=== PATIENT | female | born 1960 | race Caucasian/White ===

== ENCOUNTER 2017-05-06 21:45 | Emergency (ER) | payer OTHER ==
[~2017-05-06] VITALS: Ht 149.9 cm; Wt 82.0 kg
[~2017-05-06 21:45] MED LIST: CIPR500T2 PO; PYRI200T4 PO; ZOFR4TAB3 SL
[2017-05-06 21:50] VITALS: BP 120/81; PULSE 85; RESP 16; TEMP 98.2; O2SAT 97
--- NOTE | 2017-05-06 22:28 | PD ---
HPI Chief Complaint: ENT Complaint Time Seen by Provider: 22:18 Travel History International Travel<30 days: No Contact w/Intl Traveler<30days: No Traveled to known affect area: No History of Present Illness HPI 56 year-old female presents to the emergency room for dental pain and possible allergic reaction. Patient has been experiencing dental pain for the past several weeks. She has been on Augmentin and now clindamycin prescribed by her dentist for this without significant relief in symptoms. They took x-rays and told her that she had root issues. States she has called her dentist back multiple times and tried several other dentists in the area but the earliest she could be seen is May 29. The other dentist won't see her because she is "under the care of another physician." When she called back again tonia and they told her "if it's that bad, go to the emergency room." Patient has been taking her clindamycin, 600 mg ibuprofen, and 650 mg Tylenol as prescribed. She also tried topical medications. The Tylenol is the only thing that seems to help. Patient denies fever, chills, nausea, and vomiting. She was prescribed Lortab but states she cannot take it because it makes her stomach hurt. She is concerned that she has developed an allergic reaction to the clindamycin because for the past 5 days she has had a scratchy throat and itchy skin. PFSH Past Medical History Arthritis: No Asthma: No Autoimmune Disease: No Blood Disorders: No Bipolar Disorder: Yes Anxiety: Yes Depression: Yes Cancer: No Cardiovascular Problems: No High Cholesterol: Yes Chest Pain: Yes COPD: No Cerebrovascular Accident: No Diabetes: No Diminished Hearing: Yes (DIMINISHED HEARING IN RT EAR.) Endocrine: No Fibromyalgia: Yes Gastrointestinal Disorders: Yes (CELIAC DISEASE, GASTROPARESIS) Genitourinary: No Headaches: Yes Musculoskeletal: Yes (FIBROMYALGIA) Neurologic: Yes Psychiatric: Yes Reproductive: No Respiratory: No Immunizations Current: Yes Migraines: Yes Seizures: Yes Sleep Apnea: No Thyroid Disease: No PNEUMOCCOCAL Vaccine (Year): 2008 ?: Not Menopausal: Yes : 6 Para: 3 Miscarriage: 3 Ovarian Cysts: Yes (RIGHT GROIN) Past Surgical History Abdominal Surgery: Yes (CYST REMOVED FROM GROIN) Appendectomy: Yes Body Medical Devices: FIBROMYALGIA. Section: Yes (X2) Cholecystectomy: Yes Genitourinary Surgery: Yes (CYST REMOVED RIGHT GROIN) Gynecologic Surgery: Yes (HYSTERECTOMY 2004 ,CSECTION) Hysterectomy: Yes (PARTIAL) Neurologic Surgery: No Other Surgery: Yes (CYST REMOVED FROM RIGHT HIP AREA) Social History Alcohol Use: No Tobacco Use: No Substance Use: No Allergies-Medications (Allergen,Severity, Reaction): Coded Allergies: Augmentin (Verified Allergy, Severe, Hives, 09/24/16) Gluten (Verified Allergy, Severe, SWELLING, 09/24/16) Erythromycin (Verified Adverse Reaction, Severe, VOMITING, 09/24/16) Reported Meds & Prescriptions Reported Meds & Active Scripts Active Pyridium (Phenazopyridine HCl) 200 Mg Tab 200 Mg PO Q8H PRN 3 Days Zofran Odt (Ondansetron Odt) 4 Mg Tab 4 Mg SL Q6HR PRN Ciprofloxacin (Ciprofloxacin HCl) 500 Mg Tab 500 Mg PO BID 7 Days Review of Systems Except as stated in HPI: all other systems reviewed are Neg Physical Exam Narrative GENERAL: Well-nourished, well-developed female in no acute distress. Afebrile. Ambulatory. SKIN: Focused skin assessment warm/dry. No rash. HEAD: Normocephalic. EYES: No scleral icterus. No injection or drainage. DENTAL: No loose or chipped teeth. No malocclusion. Tooth #3 is extremely tender to palpation. No surrounding erythema, edema, or induration. No drainage. No submental, sublingual her, or buccal edema or induration. ENT: Mucosa pink and moist. Mild erythema without edema or exudates. No uvular edema. No uvular, palatal, or tonsillar deviation. Airway patent. Tonsils 1+ and equal bilaterally. NECK: Supple, trachea midline. No JVD or lymphadenopathy. CARDIOVASCULAR: Regular rate and rhythm without murmurs, gallops, or rubs. RESPIRATORY: Breath sounds equal bilaterally. No accessory muscle use. Data Data Last Documented VS Vital Signs Date Time Temp Pulse Resp B/P Pulse Ox O2 Delivery O2 Flow Rate FiO2 05/06/17 21:50 98.2 85 16 120/81 97 MDM Medical Decision Making Medical Screen Exam Complete: Yes Emergency Medical Condition: No Medical Record Reviewed: Yes Differential Diagnosis Dental abscess Narrative Course 56-year-old female on clindamycin prescribed by a dentist for dental abscess presents to the emergency room for evaluation of dental pain for the past several weeks. States it doesn't seem to be improving with the medications. Physical exam is unremarkable. No evidence of acute infection at this time. Patient was informed that there is nothing the emergency room can do except help treat the pain but that ultimately her tooth will need to be evaluated and possibly removed by a dentist. There is no evidence of allergic reaction to her medications: Vital signs are stable, there is no rash, airway is patent, lung sounds are clear and equal bilaterally. A medical screening exam was performed: At the time of evaluation the presenting medical condition was determined not to be of an emergent nature. The patient was given the option of receiving additional care, such as prescription for Zofran, but declined. Patient was given options for additional community resources from which to obtain care. The Patient Has Been advised to seek medical attention for their presenting complaint. The patient has been advised to return to the ER at any time if an emergent condition develops. Diagnosis Primary Impression: Encounter for medical screening examination Disposition: 01 DISCHARGE HOME Condition: Stable Rossana Buchanan May 06, 2017 22:28
== END 2017-05-06 22:19 | disposition left against medical advice (07) ==
LOC: PHEFT 21:45
DX: K08.89 Other specified disorders of teeth and supporting structures (principal)
CPT/HCPCS: 99281

== ENCOUNTER 2017-09-24 15:48 | Emergency (ER) | payer OTHER ==
[~2017-09-24] VITALS: Ht 149.9 cm; Wt 81.4 kg
[2017-09-24 16:12] VITALS: BP 127/69; PULSE 77; RESP 16; TEMP 97.9; O2SAT 98
[2017-09-24 16:25] LABS: GLUCOSE,URINE NEG (NEG); KETONE, URINE NEG (NEG); NITRITE,URINE NEG (NEG)
[2017-09-24 16:33] LABS: BLOOD, URINE TRACE (NEG)
[2017-09-24 16:37] LABS: METHOD OF COLLECTION CLEAN CATCH; URINE COLOR YELLOW (YELLW/STRAW)
[2017-09-24 16:38] LABS: COMMENT (UR) CULT NOT INDICATED; CULTURE IF INDICATED CULT NOT INDICATED; SQUAMOUS EPITHELIAL CELL URINE 0-5 /hpf (0-5); WBC, URINE 0-2 /hpf (0-5)
--- NOTE | 2017-09-24 17:58 | PD ---
HPI Chief Complaint: Flank/Kidney Pain Time Seen by Provider: 17:46 Travel History International Travel<30 days: No Contact w/Intl Traveler<30days: No Traveled to known affect area: No History of Present Illness HPI 56yo F with PMH of fibromyalgia, gastroparesis presents to the ED with c/o right sided back pain that radiates to right groin for 1 day. Associated with nausea. Had kidney stone years ago. Denies any fever, chest pain, sob, vomiting, dysuria, vaginal bleeding or discharge. Had hematuria a week ago. Denies any trauma, IVDA, focal weakness or numbness. PFSH Past Medical History Arthritis: No Asthma: No Autoimmune Disease: No Blood Disorders: No Bipolar Disorder: Yes Anxiety: Yes Depression: Yes Cancer: No Cardiovascular Problems: No High Cholesterol: Yes Chest Pain: Yes COPD: No Cerebrovascular Accident: No Diabetes: No Diminished Hearing: Yes (DIMINISHED HEARING IN RT EAR.) Endocrine: No Fibromyalgia: Yes Gastrointestinal Disorders: Yes (CELIAC DISEASE, GASTROPARESIS) Genitourinary: No Headaches: Yes Musculoskeletal: Yes (FIBROMYALGIA) Neurologic: Yes Psychiatric: Yes Reproductive: No Respiratory: No Immunizations Current: Yes Migraines: Yes Seizures: Yes Sleep Apnea: No Thyroid Disease: No PNEUMOCCOCAL Vaccine (Year): 2008 ?: Not Menopausal: Yes : 6 Para: 3 Miscarriage: 3 Ovarian Cysts: Yes (RIGHT GROIN) Past Surgical History Abdominal Surgery: Yes (CYST REMOVED FROM GROIN) Appendectomy: Yes Body Medical Devices: FIBROMYALGIA. Cardiac Surgery: No Section: Yes (X2) Cholecystectomy: Yes Ear Surgery: No Endocrine Surgery: No Eye Surgery: No Genitourinary Surgery: Yes (CYST REMOVED RIGHT GROIN) Gynecologic Surgery: Yes (HYSTERECTOMY 2004 ,CSECTION) Hysterectomy: Yes (PARTIAL) Insulin Pump: No Neurologic Surgery: No Oral Surgery: No Thoracic Surgery: No Other Surgery: Yes (CYST REMOVED FROM RIGHT HIP AREA) Social History Alcohol Use: No Tobacco Use: No Substance Use: No Allergies-Medications (Allergen,Severity, Reaction): Coded Allergies: amoxicillin (Unverified Allergy, Severe, Hives, 09/24/17) clavulanic acid (Unverified Allergy, Severe, Hives, 09/24/17) gluten (Unverified Allergy, Severe, SWELLING, 09/24/17) erythromycin base (Unverified Adverse Reaction, Severe, VOMITING, 09/24/17) Reported Meds & Prescriptions Reported Meds & Active Scripts Active Reported D3 Super Strength (Cholecalciferol) 2,000 Unit Cap 2,000 Units PO DAILY Probiotic (Lactobacillus Acidophilus) 10 Billion Cell Cap 1 Cap PO TIDAC Fish Oil ([place]-3 Fatty Acids) 340 Mg-1,000 Mg Cap Review of Systems Except as stated in HPI: all other systems reviewed are Neg Physical Exam Narrative GENERAL: 56yo F in mild distress. SKIN: Focused skin assessment warm/dry. HEAD: Atraumatic. Normocephalic. EYES: Pupils equal and round. No scleral icterus. No injection or drainage. CARDIOVASCULAR: Regular rate and rhythm. No murmur appreciated. RESPIRATORY: No accessory muscle use. Clear to auscultation. Breath sounds equal bilaterally. GASTROINTESTINAL: Abdomen soft, +TTP right flank. Mild epigastric ttp, said she always has this. No rebound tenderness or guarding. BACK: No midline thoracic or lumbar ttp. +CVA tenderness right. MUSCULOSKELETAL: No obvious deformities. No clubbing. No cyanosis. No edema. NEUROLOGICAL: Awake and alert. No obvious cranial nerve deficits. Motor grossly within normal limits. Normal speech. PSYCHIATRIC: Appropriate mood and affect; insight and judgment normal. Data Data Last Documented VS Vital Signs Date Time Temp Pulse Resp B/P (MAP) Pulse Ox O2 Delivery O2 Flow Rate FiO2 09/24/17 16:12 97.9 77 16 127/69 (88) 98 Orders Orders Urinalysis - C+S If Indicated (09/24/17 16:17) Ct Abd/Pel W/O Iv Contrast (09/24/17 16:28) Complete Blood Count With Diff (09/24/17 17:53) Comprehensive Metabolic Panel (09/24/17 17:53) Lipase (09/24/17 17:53) Ondansetron Inj (Zofran Inj) (09/24/17 18:00) Ketorolac Inj (Toradol Inj) (09/24/17 18:00) Labs Laboratory Tests Test 09/24/17 16:20 09/24/17 18:28 Urine Collection Type CLEAN CATCH Urine Color YELLOW Urine Turbidity CLEAR Urine pH 6.0 Urine Specific [place] 1.014 Urine Protein NEG mg/dL Urine Glucose (UA) NEG mg/dL Urine Ketones NEG mg/dL Urine Occult Blood TRACE Urine Nitrite NEG Urine Bilirubin NEG Urine Leukocyte Esterase SMALL Urine WBC 0-2 /hpf Urine Squamous Epithelial Cells 0-5 /hpf Microscopic Urinalysis Comment CULT NOT INDICATED White Blood Count 6.0 TH/MM3 Red Blood Count 4.82 MIL/MM3 Hemoglobin 14.0 GM/DL Hematocrit 41.4 % Mean Corpuscular Volume 85.9 FL Mean Corpuscular Hemoglobin 29.0 PG Mean Corpuscular Hemoglobin Concent 33.7 % Red Cell Distribution Width 12.5 % Platelet Count 313 TH/MM3 Mean Platelet Volume 6.6 FL Neutrophils (%) (Auto) 55.8 % Lymphocytes (%) (Auto) 36.0 % Monocytes (%) (Auto) 4.4 % Eosinophils (%) (Auto) 2.9 % Basophils (%) (Auto) 0.9 % Neutrophils # (Auto) 3.2 TH/MM3 Lymphocytes # (Auto) 2.2 TH/MM3 Monocytes # (Auto) 0.3 TH/MM3 Eosinophils # (Auto) 0.2 TH/MM3 Basophils # (Auto) 0.1 TH/MM3 CBC Comment DIFF FINAL Differential Comment Blood Urea Nitrogen 10 MG/DL Creatinine 0.75 MG/DL Random Glucose 87 MG/DL Total Protein 7.7 GM/DL Albumin 3.9 GM/DL Calcium Level 9.2 MG/DL Alkaline Phosphatase 73 U/L Aspartate Amino Transf (AST/SGOT) 15 U/L Alanine Aminotransferase (ALT/SGPT) 32 U/L Total Bilirubin 0.4 MG/DL Sodium Level 136 MEQ/L Potassium Level 3.6 MEQ/L Chloride Level 102 MEQ/L Carbon Dioxide Level 28.4 MEQ/L Anion Gap 6 MEQ/L Estimat Glomerular Filtration Rate 80 ML/MIN Lipase 135 U/L [facility] Medical Decision Making Medical Screen Exam Complete: Yes Emergency Medical Condition: Yes Differential Diagnosis Nephrolithiasis vs. pyelonephritis vs. musculoskeletal pain Narrative Course 56yo F with right back pain that may be kidney stone or musculoskeletal pain. No red flags. Labs reviewed, no leukocytosis. Creatinine normal. UA showed trace blood. WBC 0-2. CT abd/pelvis showed no obstructive uropathy. Pt given toradol and zofran with improvement of pain and nausea. Return precautions given. Diagnosis Primary Impression: Back pain Qualified Codes: M54.5 - Low back pain Patient Instructions: General Instructions Departure Forms: Tests/Procedures Additional Instructions: Please follow up with your primary care physician in 3-7 days. Return to the ED if symptoms worsen. Med/Other Pt SpecificInfo: Prescription(s) given Scripts Ibuprofen (Ibuprofen) 600 Mg Tab 600 MG PO Q8H Y for PAIN, #15 TAB 0 Refills Prov: Ning Solano DO 09/24/17 Disposition: 01 DISCHARGE HOME Condition: Stable Ning Solano DO Sep 24, 2017 17:58
[2017-09-24] MEDS ORDERED: KETOROLAC TROMETHAMINE 30 MG/ML (IVP) VIAL IV PUSH ONE (18:00)
[2017-09-24] MEDS ORDERED: ONDANSETRON HCL 4 MG/2 ML VIAL IV PUSH ONE (18:00)
[2017-09-24] MEDS ORDERED: LACTCAP8 PO (18:01)
[2017-09-24] MEDS ORDERED: FISH1000 (18:01)
[2017-09-24] MEDS ORDERED: D200CAP PO (18:01)
--- NOTE | 2017-09-24 18:12 | RADRPT ---
EXAM DATE/TIME: 09/24/2017 17:07 [facility] COMPARISON: CT ABDOMEN & PELVIS W/O CONTRAST, December 16, 2010, 1:06. INDICATIONS : Right flank pain radiating to right inguinal area with hematuria. ORAL CONTRAST: No oral contrast ingested. RADIATION DOSE: 21.31 CTDIvol (mGy) MEDICAL HISTORY : Gastroparesis. Seizures. Hypercholesterolemia.Celiac disease. SURGICAL HISTORY : Hysterectomy. section.Tubal ligation. ENCOUNTER: Initial ACUITY: 1 week PAIN SCALE: 6/10 LOCATION: Right flank TECHNIQUE: Volumetric scanning of the abdomen and pelvis was performed. Using automated exposure control and adjustment of the mA and/or kV according to patient size, radiation dose was kept as low as reasonably achievable to obtain optimal diagnostic quality images. DICOM format image data is av ailable electronically for review and comparison. FINDINGS: LOWER LUNGS: The visualized lower lungs are clear. LIVER: Homogeneous density without lesion. There is no dilation of the biliary tree. No calcifi ed gallstones. Status post cholecystectomy. SPLEEN: Normal size without lesion. PANCREAS: Within normal limits. KIDNEYS: Normal in size and shape. There is no mass, stone, or hydronephrosis. ADRENAL GLANDS: Within normal limits. VASCULAR: There is no aortic aneurysm. BOWEL/MESENTERY: The stomach, small bowel, and colon demonstrate no acute abnormality. There is no free intraperitoneal air or fluid. ABDOMINAL WALL: Within normal limits. RETROPERITONEUM: There is no lymphadenopathy. BLADDER: No wall thickening or mass. REPRODUCTIVE: Within normal limits. INGUINAL: There is no lymphadenopathy or hernia. MUSCULOSKELETAL: Within normal limits for patient age. CONCLUSION: No acute obstructive uropathy. Brant Rios MD on September 24, 2017 at 18:07 Board Certified Radiologist. This report was verified electronically.
[2017-09-24 18:35] LABS: AUTOMATED NEUTROPHIL # 3.2 TH/MM3 (1.8-7.7); BASOPHIL # 0.1 TH/MM3 (0-0.2); BASOPHIL % 0.9 % (0.0-2.0); EOSINOPHIL # 0.2 TH/MM3 (0-0.4); EOSINOPHIL % 2.9 % (0.0-4.0); HEMATOCRIT 41.4 % (35.0-46.0); HEMO FLAGS DIFF FINAL; LYMPHOCYTE # 2.2 TH/MM3 (1.0-4.8); MEAN CELL VOLUME 85.9 FL (80.0-100.0); MEAN CORPUSCULAR HGB CONC 33.7 % (32.0-36.0); MONO % 4.4 % (0.0-8.0); NEUT % 55.8 % (16.0-70.0); PLATELET COUNT 313 TH/MM3 (150-450); RED BLOOD COUNT 4.82 MIL/MM3 (4.00-5.30); RED CELL DISTRIBUTION WIDTH 12.5 % (11.6-17.2)
[2017-09-24 18:43] LABS: CHLORIDE 102 MEQ/L (98-107); POTASSIUM 3.6 MEQ/L (3.5-5.1); SODIUM (NA) 136 MEQ/L (136-145)
[2017-09-24 18:47] LABS: ANION GAP 6 MEQ/L (5-15); BICARBONATE 28.4 MEQ/L (21.0-32.0); BLOOD UREA NITROGEN 10 MG/DL (7-18)
[2017-09-24 18:49] LABS: ALT (GPT) 32 U/L (10-53); AST (GOT) 15 U/L (15-37); GLOMERULAR FILTRATION RATE 80 ML/MIN (>89)
[2017-09-24 18:51] LABS: TOTAL BILIRUBIN ADULT 0.4 MG/DL (0.2-1.0)
[2017-09-24 18:52] LABS: ALKALINE PHOSPHATASE 73 U/L (45-117)
[2017-09-24] MEDS ORDERED: IBUP-232 PO (19:16)
[2017-09-24 19:33] VITALS: RESP 16
[2017-09-24] MEDS ORDERED: TRAM50TA PO (19:45)
[2017-09-24 19:48] VITALS: BP 127/61
== END 2017-09-24 19:50 | disposition home or self-care (01) ==
LOC: PHED 15:48
DX: M54.5 Low back pain (principal); K90.0 Celiac disease; K31.84 Gastroparesis
CPT/HCPCS: 74176; 80053; 81001; 83690; 85025; 96374; 96375; 99285; J1885; J2405

== ENCOUNTER 2018-04-05 15:06 | Emergency (ER) | payer OTHER ==
[~2018-04-05] VITALS: Ht 149.9 cm; Wt 81.0 kg
[~2018-04-05 15:06] MED LIST changes: -CIPR500T2 PO; +D200CAP PO; +FISH1000; +IBUP-232 PO; +LACTCAP8 PO; -PYRI200T4 PO; +TRAM50TA PO; -ZOFR4TAB3 SL
[2018-04-05 15:11] VITALS: BP 133/65; PULSE 70; RESP 16; TEMP 97.7; O2SAT 97
--- NOTE | 2018-04-05 15:39 | PD ---
HPI Chief Complaint: Headache Time Seen by Provider: 15:18 Travel History International Travel<30 days: No Contact w/Intl Traveler<30days: No Traveled to known affect area: No History of Present Illness HPI The patient was seen and examined in the presence of the nurse. This patient has numerous complaints. She has fibromyalgia. It is acting up in all her joints are hurting. She says her out of 10 level. She is worried about having allergic reaction to some of her GI medications. She was started on H. pylori therapy 2 days ago. She complains of feeling dizzy. Severity is moderate. Duration 14 hours. PFSH Past Medical History Arthritis: No Asthma: No Autoimmune Disease: No Blood Disorders: No Bipolar Disorder: Yes Anxiety: Yes Depression: Yes Cancer: No Cardiovascular Problems: No High Cholesterol: Yes Chest Pain: Yes COPD: No Cerebrovascular Accident: No Diabetes: No Diminished Hearing: Yes (DIMINISHED HEARING IN RT EAR.) Endocrine: No Fibromyalgia: Yes Gastrointestinal Disorders: Yes (CELIAC DISEASE, GASTROPARESIS) Genitourinary: No Headaches: Yes Musculoskeletal: Yes (FIBROMYALGIA) Neurologic: Yes Psychiatric: Yes Reproductive: No Respiratory: No Immunizations Current: Yes Migraines: Yes Seizures: Yes Sleep Apnea: No Thyroid Disease: No PNEUMOCCOCAL Vaccine (Year): 2008 Menopausal: Yes : 6 Para: 3 Miscarriage: 3 Ovarian Cysts: Yes (RIGHT GROIN) Past Surgical History Abdominal Surgery: Yes (CYST REMOVED FROM GROIN) Appendectomy: Yes Body Medical Devices: FIBROMYALGIA. Cardiac Surgery: No Section: Yes (X2) Cholecystectomy: Yes Ear Surgery: No Endocrine Surgery: No Eye Surgery: No Genitourinary Surgery: Yes (CYST REMOVED RIGHT GROIN) Gynecologic Surgery: Yes (HYSTERECTOMY 2004 ,CSECTION) Hysterectomy: Yes (PARTIAL) Insulin Pump: No Neurologic Surgery: No Oral Surgery: No Thoracic Surgery: No Other Surgery: Yes (CYST REMOVED FROM RIGHT HIP AREA) Social History Alcohol Use: No Tobacco Use: No Substance Use: No Allergies-Medications (Allergen,Severity, Reaction): Coded Allergies: amoxicillin (Unverified Allergy, Severe, Hives, 04/05/18) clavulanic acid (Unverified Allergy, Severe, Hives, 04/05/18) gluten (Unverified Allergy, Severe, SWELLING, 04/05/18) erythromycin base (Unverified Adverse Reaction, Severe, VOMITING, 04/05/18) Reported Meds & Prescriptions Reported Meds & Active Scripts Active Tramadol (Tramadol HCl) 50 Mg Tab 50 Mg PO Q6H PRN Ibuprofen 600 Mg Tab 600 Mg PO Q8H PRN Reported D3 Super Strength (Cholecalciferol) 2,000 Unit Cap 2,000 Units PO DAILY Probiotic (Lactobacillus Acidophilus) 10 Billion Cell Cap 1 Cap PO TIDAC Fish Oil ([place]-3 Fatty Acids) 340 Mg-1,000 Mg Cap Review of Systems General / Constitutional: No: Fever HENT: Positive: Headaches, Vertigo, Lightheadedness Cardiovascular: No: Chest Pain or Discomfort Respiratory: No: Cough Musculoskeletal: Positive: Myalgias, Arthralgias, Pain Neurologic: Positive: Dizziness Psychiatric: Positive: Anxiety Physical Exam Narrative GENERAL: Well-nourished, well-developed patient in no apparent distress. SKIN: Focused skin assessment reveals no rash and nodules. Skin is Warm and dry. HEAD: Atraumatic. Normocephalic. EYES: Pupils equal and round. No scleral icterus. No injection or drainage. ENT: No nasal bleeding or discharge. Mucous membranes pink and moist. NECK: Trachea midline. No JVD. CARDIOVASCULAR: Regular rate and rhythm. No murmur appreciated. RESPIRATORY: No accessory muscle use. Clear to auscultation. Breath sounds equal bilaterally. GASTROINTESTINAL: Abdomen soft, non-tender, nondistended. Hepatic and splenic margins not palpable. MUSCULOSKELETAL: No obvious deformities. No clubbing. No cyanosis. No edema. NEUROLOGICAL: Awake and alert. No obvious cranial nerve deficits. Motor grossly within normal limits. Normal speech. PSYCHIATRIC: Anxious mood and affect; insight and judgment seems reduced . Data Data Last Documented VS Vital Signs Date Time Temp Pulse Resp B/P (MAP) Pulse Ox O2 Delivery O2 Flow Rate FiO2 04/05/18 15:11 97.7 70 16 133/65 (87) 97 MDM Medical Decision Making Medical Screen Exam Complete: Yes Emergency Medical Condition: Yes Medical Record Reviewed: Yes Differential Diagnosis Anxiety, adverse medication side effect, fibromyalgia Narrative Course I have reviewed the patient's electronic medical record. Patient's examination and vital signs are normal. No objective findings. She is very anxious. I think that is spilling a large part here. She is worried that the medications are causing her symptoms. Given that fact, I have asked her to stop the medication but she already has. I do not see any objective evidence of allergic reaction. She is call her GI physician Saturday for discussion of substitute medications or alternative plans. Stable for outpatient follow-up. Diagnosis Primary Impression: Medication adverse effect Qualified Codes: T50.905A - Adverse effect of unspecified drugs, medicaments and biological substances, initial encounter Additional Impression: Anxiety Additional Instructions: Follow-up with primary care or GI physician Med/Other Pt SpecificInfo: Other Disposition: 01 DISCHARGE HOME Condition: Stable Raimundo Brownlee MD Apr 05, 2018 15:39
[2018-04-05] MEDS ORDERED: LINA72CA P-ARTICULR (15:43)
[2018-04-05] MEDS ORDERED: ROSU1TAB4 PO (15:45)
[2018-04-05] MEDS ORDERED: METR-1 PO (15:45)
[2018-04-05] MEDS ORDERED: LEVA500T33 PO (15:45)
[2018-04-05] MEDS ORDERED: OMEP20TA93 PO (15:45)
== END 2018-04-05 15:51 | disposition home or self-care (01) ==
LOC: PHED 15:06
DX: R51 Headache (principal); F41.9 Anxiety disorder, unspecified; R42 Dizziness and giddiness; M79.7 Fibromyalgia; F31.9 Bipolar disorder, unspecified; E78.00 Pure hypercholesterolemia, unspecified; K90.0 Celiac disease; K31.84 Gastroparesis; Z86.69 Personal history of other diseases of the nervous system and sense organs; Z79.899 Other long term (current) drug therapy; Z88.0 Allergy status to penicillin; Z88.1 Allergy status to other antibiotic agents; Z88.8 Allergy status to other drugs, medicaments and biological substances
CPT/HCPCS: 99282